=== PATIENT | female | born 1985 | race Caucasian/White ===

== ENCOUNTER 2017-09-25 15:45 | Day surgery (SDC) | payer BC ==
--- NOTE | 2017-09-25 16:40 | PDOC.LDHP ---
Labor and Delivery H&P HPI: L&D Triage: Eval at 1635: Chief complaint: contractions at term HPI: Patient of Dr Alicia here in triage for irregular ctx. No LOF, no VB, no VERDUZCO nor visual changes, No RUQ pain. Good FM. Review of systems: complete ROS performed and negative as per HPI. Past Medical: HX cardiac ablation in past, HX infertility Surgical HX: Rt shoulder surgery OB HX: x 1 Allergies: none Social: negative for ETOH, drugs, tobacco Current gestational age (weeks): 38 Due date: 10/03/17 Dating criteria: last menstrual period Grav: 2 Para: 1 Current complications: none Current medications: pre-destiny vitamins Previous surgical history: other (Cardiac ablation and right shoulder surgery; wisdom teeth; Tonsila and adenoids) Allergies/Adverse Reactions: Allergies Allergy/AdvReac Type Severity Reaction Status Date / Time No Known Allergies Allergy Verified 08/31/14 17:28 Social history: none - Physical Exam Vital signs reviewed and normal: yes (BP 127/76 Pulse 90s) General: NAD Heart: RRR Lungs: CTAB Abdomen: gravid (EFAW 6#) - Vaginal Exam cm dilated: 3 (was 2-3cm at office last check 2 days ago) Effacement: 50% Station: -1 - Assessment Latent labor at term (38 weeks), multip - Plan Plan: observation in L&D (We will have the patient ambulate and recheck in 2 hours. Cat 1 strip at first eval. Pain meds prn. If contractions result in cx change, admit. Check GBS result.)
[2017-09-25] MEDS ORDERED: Promethazine HCl 25 MG/ML VIAL IM/IV PRN (16:43)
[2017-09-25 17:36] VITALS: BMI 28.5
--- NOTE | 2017-09-25 18:39 | PDOC.EVN ---
Event Note - Event Note Event Note: Follow up exam by same provider (FELIX Clark): Cx unchanged at 50/-1/ BP 127/ 70s. I re-evaluated the patient at bedside, ok for discahrge. DX: latent labor. Pain under good control and contractions have decreased.
== END 2017-09-25 18:44 | disposition home or self-care (01) ==
LOC: L&D/OP 15:45
PROVIDERS: ATTEND Obstetrics & Gynecology
DX: O47.1 False labor at or after 37 completed weeks of gestation (principal); Z3A.38 38 weeks gestation of pregnancy; Z79.899 Other long term (current) drug therapy
CPT/HCPCS: 99282

== ENCOUNTER 2017-09-26 01:45 | Inpatient (IN) | payer BC ==
[2017-09-26 02:12] VITALS: BMI 28.5
[2017-09-26] MEDS ORDERED: Lidocaine 1% (PF) 30 ML VIAL SC PRN (02:39)
[2017-09-26] MEDS ORDERED: HYDROcodone/Acetaminophen 5/325 mg Tablet PO PRN ×2 (02:39)
[2017-09-26] MEDS ORDERED: Promethazine HCl 25 MG/ML VIAL IM PRN (02:39)
[2017-09-26] MEDS ORDERED: Ibuprofen 800 MG TAB PO PRN (02:39)
[2017-09-26] MEDS ORDERED: LR / Pitocin 40 units/1000 ml 1,000 ML IV PRN (02:39)
--- NOTE | 2017-09-26 02:43 | PDOC.LDHP ---
Labor and Delivery H&P Chief complaint: contractions, loss of fluid HPI: 32 yo at term with SOOL with loss of fluid at 0045. Some irregular contractions. Good FM. She was 3cm yesterday in L&D when assessed. No Headaches, no visual changes. Review of systems: complete ROS performed and as per HPI Current gestational age (weeks): 39 Grav: 3 Para: 1 OB History Details: x 1 Current complications: none Current medications: pre- vitamins Previous surgical history: other (cardiac ablation, wisdom teeth) Allergies/Adverse Reactions: Allergies Allergy/AdvReac Type Severity Reaction Status Date / Time No Known Allergies Allergy Verified 09/26/17 02:13 Social history: none - Physical Exam Vital signs reviewed and normal: yes General: NAD Heart: RRR Lungs: CTAB Abdomen: gravid (EFW approx 6#) FHT: category 1 [place] contractions every: irregular - Vaginal Exam cm dilated: 3 Effacement: 50% Station: -1 - Assessment L&D Assessment: term rupture in membranes - Plan Plan: admit to L&D, labor augmentation if indicated, GBS antibiotic prophylaxis , informed consent obtained, anesthesia consult for pain management
[2017-09-26] MEDS ORDERED: Penicillin G Potassium 5 MILL.UNITS in Sodium Chloride 0.9% 100 ML IVPB SCH (02:45)
[2017-09-26 02:56] LABS: Hemoglobin 11.9 g/dL (12.0-16.0); Mean Corpuscular HGB CONC 34.8 g/dL (32.0-36.0); Mean Corpuscular Volume 80.7 fl (81.0-99.0); Mean Platelet Volume 7.4 fL (7.4-10.4); Platelet Count 188 thou/uL (130-400); Red Blood Cell (RBC) Count 4.25 mill/uL (4.20-5.40)
[2017-09-26] MEDS ORDERED: Penicillin G Potassium 5 MILL.UNITS VIAL ONE (03:09)
[2017-09-26 03:42] LABS: HBSAg Index 0.19 S/CO (0-0.99); HIV (1/2) Antibody/Antigen Non-Reactive (NonReactive); HIV 1/2 INDEX 0.06 S/CO (<1.00); Hep B Surf Ag Non-Reactive S/CO (NonReactive)
--- NOTE | 2017-09-26 04:36 | PDOC.LDPN ---
Labor & Delivery Progress Note - Objective General: NAD, resting, breathing through contractions Uterine fundus: non tender FHT: category [address] [place] contractions every: few and irregular - Assessment (1) Rupture of membranes Code(s): JVP3974 - Current Visit: Yes Status: Acute (2) 39 weeks gestation of Code(s): Z3A.39 - 39 WEEKS GESTATION OF Current Visit: Yes Status : Acute (3) Premature rupture of membranes Code(s): O42.90 - EVAN ROM, 7TH0 BETW RUPT & ONST LABR, UNSP WEEKS OF GEST Current Visit: Yes Status: Acute Plan: continue plan of care, pitocin for augmentation (We discussed pitocin for latent labor (3cm) PROM. She would like to await to see if conttractions start spontaneously. If no spontaneous labor, we will start pitocin. ), other
[2017-09-26 04:50] LABS: Syphilis Antibody Nonreactive (Nonreactive); Syphilis Antibody Index 0.03 S/CO (<1.00 Non-Reactive)
[2017-09-26] MEDS ORDERED: Penicillin G 2.5 MILL.units 2.5 MILL.UNITS in Premix Bag 1 BAG IVPB SCH (05:00)
[2017-09-26] MEDS: LR / Pitocin 40 units/1000 ml 1,000 ML IV SCH ×2 (06:20→08:27)
[2017-09-26] MEDS ORDERED: Bisacodyl 10 MG SUPP PR PRN (06:24)
[2017-09-26] MEDS ORDERED: Preparation H Ointment 28 GM TUBE PR PRN (06:24)
[2017-09-26] MEDS ORDERED: Milk Of Magnesia 30 ML UDCUP PO PRN (06:24)
[2017-09-26] MEDS ORDERED: Acetaminophen/Codeine 30-300mg Tablet PO PRN ×2 (06:24)
[2017-09-26] MEDS ORDERED: diphenhydrAMINE 25 MG CAP PO PRN (06:24)
[2017-09-26] MEDS ORDERED: Lanolin Ointment 7 GM TUBE TOP PRN (06:24)
[2017-09-26] MEDS ORDERED: Benzocaine/Menthol 20-0.5% 60 ML CAN TOP PRN (06:24)
--- NOTE | 2017-09-26 06:28 | PDOC.OPDEL ---
OB Operative/Delivery Note Delivery Dr/Surgeon: Yannick (For Ravin) Assist: None Pre-Delivery Diagnosis: active labor Procedure/Post Delivery Dx: spontaneous vaginal delivery (Delivery at 0617 ( after complete at 0605)) Weeks gestation: 39 Anesthesia: local - Findings A Sex: male - 1 min: 8 (Off for color) - 5 min: 9 - Additional Findings/Plan Placenta delivered: spontaneous (Placenta delivered 2 minutes after baby-- guidry mechanism) Repaired Obstetrical Laceration: 1st degree (midline, not repaired) Estimated blood loss: 300 Compilations/Other Findings: Hercules male, cephalic. No Nuchal cord No complications with delivery Intact placenta with 3VC All counts were correct First degree not requiring repair. Local poured (10ml) on perineum just prior to delivery (non-injection) for patient relief of burning with . Post delivery plan: routine recovery
[2017-09-26] MEDS: LR 500 ML/Oxytocin 10 units 500 ML IV SCH (06:49)
[2017-09-26] MEDS: Ferrous Sulfate 325 MG TAB PO SCH ×2 (08:29→17:55)
[2017-09-26] MEDS: Docusate Calcium (SURFAK) 240 MG CAP PO SCH ×2 (08:29→21:46)
[2017-09-26] MEDS: Prenatal Vitamin 1 TAB PO SCH (08:29)
[2017-09-26] MEDS ORDERED: Measles/Mumps/Rubella 10 MCG/0.5 ML VIAL SC ONE (09:00)
[2017-09-26] MEDS ORDERED: Varicella virus, LIVE 0.5 ML VIAL SC ONE (09:00)
[2017-09-26] MEDS ORDERED: Adacel (T-DAP) 0.5 ML VIAL IM ONE (09:00)
[2017-09-26] MEDS: Ibuprofen 800 MG TAB PO SCH ×2 (14:25→21:45)
[2017-09-27 05:28] LABS: Hemoglobin 10.3 g/dL (12.0-16.0); Mean Corpuscular HGB CONC 34.6 g/dL (32.0-36.0); Mean Corpuscular Hemoglobin 28.4 pg (27.0-31.0); Mean Platelet Volume 7.7 fL (7.4-10.4); Platelet Count 183 thou/uL (130-400); RBC Distribution Width 13.2 % (11.5-14.5); Red Blood Cell (RBC) Count 3.63 mill/uL (4.20-5.40); White Blood Cell (WBC) Count 10.1 thou/uL (4.8-10.8)
[2017-09-27] MEDS: LR 500 ML/Oxytocin 10 units 500 ML IV SCH (06:17)
[2017-09-27] MEDS: Ibuprofen 800 MG TAB PO SCH ×2 (06:18→14:00)
--- NOTE | 2017-09-27 07:03 | PDOC.PP ---
Post Progress Note Post Day #: 1 PO intake tolerated: yes Flatus: yes Ambulation: yes Vital Signs (12 hours) Temp Pulse Resp BP Pulse Ox 09/27/17 00:53 98.3 F 73 18 104/56 L 09/26/17 20:25 98.2 F 72 18 117/65 99 Weight Weight 188 lb - Physical Examination General: NAD Cardiovascular: no m/r/g, RRR Respiratory: clear to auscultation bilaterally Abdominal: + bowel sounds, lochia Extremities: negative homans (B) Neurological: no gross focal deficits Psychiatric: A&Ox3, normal affect Result Diagrams: 09/27/17 04:26 Additional Labs: Post Labs Hep Bs Antigen Non-Reactive S/CO (NonReactive) 09/26/17 02:40 (1) Vaginal delivery Code(s): O80 - ENCOUNTER FOR FULL-TERM UNCOMPLICATED DELIVERY Status: Acute - Assessment/Plan DChome will e[facility] nursery
[2017-09-27] MEDS: Ferrous Sulfate 325 MG TAB PO SCH (08:34)
[2017-09-27] MEDS: Prenatal Vitamin 1 TAB PO SCH (08:41)
[2017-09-27] MEDS: Docusate Calcium (SURFAK) 240 MG CAP PO SCH (08:42)
[2017-09-27 09:05] VITALS: BP 107/53; TEMP 97.9
== END 2017-09-27 17:55 | disposition home or self-care (01) | DRG 775 ==
LOC: L&D/OP 01:45 → L&D 02:49 → 3SW 11:44
PROVIDERS: ADMIT Obstetrics & Gynecology; ATTEND Obstetrics & Gynecology
PROC: 10E0XZZ Delivery of Products of Conception, External Approach (ICD-10-PCS; principal; 2017-09-26)
DX: O99.824 Streptococcus B carrier state complicating childbirth (principal); Z37.0 Single live birth; O70.0 First degree perineal laceration during delivery; Z3A.39 39 weeks gestation of pregnancy
CPT/HCPCS: 36415; 85027; 86780; 87340; 87389; 99285; J2001; J2540

== ENCOUNTER 2017-11-15 07:05 | Emergency (ER) | payer BC ==
[2017-11-15 07:36] LABS: Bilirubin Small (Negative); Blood, Urine Trace (Negative); Clarity Slightly Cloudy (Clear); Glucose, Urine (Dipstick) Negative (Negative); Leukocyte Trace (Negative); Nitrite Negative (Negative); Protein, Urine (Dipstick) > or equal to 300 mg/dL (Neg-Trace)
[2017-11-15 07:37] LABS: Bacteria/HPF Rare-Few HPF (None Seen); Specific Gravity, Urine Greater than 1.035 (1.002-1.036)
[2017-11-15 07:38] LABS: Crystals/HPF 2+ AMORPH URATES HPF (Negative); Hyaline Casts/LPF NONE SEEN LPF (0-3 Hyaline)
[2017-11-15] MEDS ORDERED: Ondansetron ODT 4 MG TAB ONE (07:47)
[2017-11-15] MEDS ORDERED: Fentanyl 100 MCG/2 ML VIAL ONE (07:47)
[2017-11-15 08:09] LABS: ALT (SGPT) 44 U/L (8-55); AST (SGOT) 41 U/L (5-34); Albumin 4.1 g/dL (3.5-5.0); Alkaline Phosphatase 177 U/L (40-150); Anion Gap 18 mmol/L (10-20); BUN (Urea Nitrogen) 18 mg/dL (7.0-18.7); Band 3 % (5-11); Bilirubin, Total 0.3 mg/dL (0.2-1.2); Calc. Creatinine Clearance 0 mL/min (70-130); Calcium 10.2 mg/dL (7.8-10.44); Carbon Dioxide 19 mmol/L (22-29); Chloride 109 mmol/L (98-107); Eosinophils 2 % (0-10); Estimated GFR-MDRD 90; Globulin 3.1 g/dL (2.4-3.5); Glucose 102 mg/dL (70-105); Hemoglobin 12.9 g/dL (12.0-16.0); Lipase 17 U/L (8-78); Lymphocytes 16 % (21-51); MDiff Complete? YES; Mean Corpuscular HGB CONC 34.4 g/dL (32.0-36.0); Mean Corpuscular Hemoglobin 26.9 pg (27.0-31.0); Mean Platelet Volume 7.3 fL (7.4-10.4); Microcytosis SLIGHT = 6-15 cells (100X) (0-5/hpf); Monocytes 3 % (0-10); Neutrophil 76 % (42-75); Platelet Count 228 thou/uL (130-400); Potassium 4.2 mmol/L (3.5-5.1); Protein, Total 7.2 g/dL (6.0-8.3); RBC Distribution Width 12.6 % (11.5-14.5); Red Blood Cell (RBC) Count 4.79 mill/uL (4.20-5.40); Sodium 142 mmol/L (136-145); White Blood Cell (WBC) Count 7.9 thou/uL (4.8-10.8)
--- NOTE | 2017-11-15 10:16 | ULT ---
RIGHT UPPER QUADRANT ULTRASOUND: HISTORY: Pain. COMPARISON: None. TECHNIQUE: Utilizing a multihertz transducer, sonographic imaging of the right upper quadrant is performed in th e longitudinal and transverse plane. FINDINGS: Hepatic parenchyma has a normal echotexture. No hepatic masses or intrahepatic biliary dilatation. Contour of the hepatic margin is maintained. The right hepatic lobe measures 19.5 cm. The head and proximal pancreatic body have a normal echotexture. The remainder of the pancreas is ob scured. Visualized IVC is unremarkable. No hydronephrosis. The right kidney measures 3.4 x 3.6 x 11.8 cm. Main portal vein is patent. Appropriate directional flow. The common bile duct diameter is 0.3 cm. Sonographic evidence of sludge and stones. No evidence of cholecystitis. Gallbladder wall is not th ickened. No pericholecystic fluid. Negative Thomas's sign. IMPRESSION: Sonographic evidence of sludge and stones. No evidence of cholecystitis. POS: [facility]
== END 2017-11-15 09:44 | disposition home or self-care (01) ==
LOC: SCSER 07:05
DX: K80.20 Calculus of gallbladder without cholecystitis without obstruction (principal); Z79.899 Other long term (current) drug therapy
CPT/HCPCS: 76705; 80053; 81003; 81015; 83690; 85025; 96360; 96361; J3010; Q0162

== ENCOUNTER 2017-11-18 09:48 | Day surgery (SDC) | payer BC ==
--- NOTE | 2017-11-17 15:03 | HP ---
HISTORY OF PRESENT ILLNESS: Ashley Shaila Medeiros. 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 She i s 6 weeks , 2, para 2, has had symptoms of epigastric right upper quadrant pain, ba ck radiation, nausea occurring postprandial. She presented to the emergency room at [facility] on 11/15/2017. Ultrasound revealed gallstones and normal bile duct caliber. Liver function test s were normal. CBC is normal. Plan is for laparoscopic cholecystectomy. She understands risks of i nfection, bleeding, visceral and biliary injury and consents. PAST SURGICAL HISTORY: Right shoulder surgery, history of cardiac ablation for PVCs, laparoscopy by Stephania Garrison, Gynecology/Oncology at [place] noting normal ovary after CA 19-9 and imaging studies suggest left ovarian mass. Ovary was normal during that study and she was released without followup . Followup tumor markers are normal. PAST SURGICAL HISTORY: Tonsillectomy. PAST MEDICAL HISTORY: Noncontributory. REVIEW OF SYSTEMS: Ten point noncontributory. PHYSICAL EXAMINATION: VITAL SIGNS: 127/70, 68, 98.8 degrees. HEAD, EARS, EYES, NOSE, AND THROAT: Unremarkable. LUNGS: Clear to auscultation. CARDIAC: Regular rate and rhythm without murmur or gallop. ABDOMEN: Soft. Mild tenderness in right upper quadrant with mild guarding. EXTREMITIES: Unremarkable. ASSESSMENT AND PLAN: Subacute cholecystitis and cholelithiasis. Recommend laparoscopic video cholec ystectomy. Risk and benefits as outlined above. Questions answered.
[2017-11-17 17:00] VITALS: BMI 25.2
[2017-11-18] MEDS ORDERED: Ketorolac Tromethamine 30 MG/ML VIAL ONE (09:57)
[2017-11-18] MEDS ORDERED: CEFAZOLIN/Water 2 GM/20 ML SYRINGE ONE (09:58)
[2017-11-18] MEDS ORDERED: Fentanyl 100 MCG/2 ML VIAL ONE ×3 (10:03→12:05)
[2017-11-18] MEDS ORDERED: HYDROmorphone 0.5 MG/0.5 ML SYRINGE ONE (10:33)
[2017-11-18] MEDS ORDERED: Levofloxacin 500 mg/D5W 100 ml Premix Bag ONE (10:41)
[2017-11-18] MEDS ORDERED: Bupivacaine HCl 0.5%/Epinephrine 1:200,000/PF 30 ml Vial ONE (10:46)
[2017-11-18] MEDS ORDERED: Promethazine HCl 25 MG/ML VIAL ONE (12:33)
[2017-11-18] MEDS ORDERED: PROPOFOL 200 MG/20 ML VIAL ONE (14:03)
[2017-11-18] MEDS ORDERED: Lidocaine 1% PF 5 ML VIAL ONE (14:03)
[2017-11-18] MEDS ORDERED: Glycopyrrolate 0.2 MG/ML 5 ML SYRINGE ONE (14:03)
[2017-11-18] MEDS ORDERED: Ondansetron HCl/PF 4 MG/2 ML Vial ONE (14:03)
[2017-11-18] MEDS ORDERED: Metoclopramide HCl 10 MG/2 ML VIAL ONE (14:03)
[2017-11-18] MEDS ORDERED: Dexamethasone 20 MG/5 ML VIAL ONE (14:03)
[2017-11-18] MEDS ORDERED: Succinylcholine Chloride 20 MG/ML 10 ml SYRINGE FS ONE (14:03)
--- NOTE | 2017-11-18 17:04 | OP ---
DATE OF PROCEDURE: 11/18/2017 PREOPERATIVE DIAGNOSES: Chronic cholecystitis, cholelithiasis, gallbladder outlet obstruction with h ydrops of the gallbladder. POSTOPERATIVE DIAGNOSES: Chronic cholecystitis, cholelithiasis, gallbladder outlet obstruction with hydrops of the gallbladder. SURGEON: Shaheed Roper M.D. ANESTHESIA: General. Local 0.5% Marcaine with epinephrine, 30 mL, total volume mixture used. FINDINGS: Acute cholecystitis, gallbladder wall thickening, hydrops of the gallbladder, gallstone ob structing the cystic duct outlet. DESCRIPTION OF PROCEDURE: The patient was taken to the operating room where under general anesthesia in supine position, abdomen was prepared with ChloraPrep, draped in routine fashion. Local anesthet ic infiltrated into skin and subcutaneous tissue about each port site. Infraumbilical incision was m armani and pneumoperitoneum to 15 mmHg were obtained with the Veress needle, replacing it with a 5 port and video laparoscope inserted. Right subxiphoid incision was made and 11 port placed. Right subcos roosevelt incision was made mid clavicular axillary lines and 5 ports placed. Liver appeared to be normal. Grossly, viscera appeared to be normal. Gallbladder was distended and wall thickened. Fundus gras ped and reflected cephalad. Infundibulum grasped and reflected laterally. Cystic artery and duct di ssected free. Critical view obtained. Cystic duct opened next to the gallbladder and cystic duct st ones moved out of the cystic duct. The cystic duct stump doubly clipped. Cystic artery double clipp ed. Cystic artery and duct divided. The gallbladder dissected free from liver bed obtaining good he mostasis prior to division of final peritoneal attachments, gallbladder and contents, stones removed and submitted to Pathology. Gallbladder contained clear inspissated mucus and fluid indicative of hy drops. Good hemostasis ensured. Irrigant and pneumoperitoneum evacuated. All instruments removed a nd all skin incisions approximated with interrupted subdermal 4-0 Monocryl and DermaGlue applied.
== END 2017-11-18 15:07 | disposition home or self-care (01) ==
LOC: SDC 09:48
PROVIDERS: ATTEND Specialist
PROC: 0FT44ZZ Resection of Gallbladder, Percutaneous Endoscopic Approach (ICD-10-PCS; principal; 2017-11-18)
DX: K80.13 Calculus of gallbladder with acute and chronic cholecystitis with obstruction (principal); K82.1 Hydrops of gallbladder; Z79.2 Long term (current) use of antibiotics
CPT/HCPCS: 88304; 96374; J0131; J0670; J1100; J1170; J1885; J1956; J2001; J2405; J2550; J2704; J2765; J3010

== ENCOUNTER 2018-04-30 15:45 | Outpatient (CLI) | payer BC ==
--- NOTE | 2018-04-30 16:05 | RAD ---
LUMBAR SPINE TWO VIEWS: 04/30/18 HISTORY: Spondylolisthesis. FINDING/IMPRESSION: There is mild scoliosis of the spine. No fracture, subluxation or bony destructive seen. There is an 8 mm calcific density in the projection of the inferior pole of the right kidney suspicio us for renal calculus. POS: [facility]
== END 2018-04-30 15:46 | disposition home or self-care (01) ==
LOC: BICRAD 15:45
PROVIDERS: ATTEND Internal Medicine Rheumatology
DX: M45.0 Ankylosing spondylitis of multiple sites in spine (principal); M41.9 Scoliosis, unspecified; N28.9 Disorder of kidney and ureter, unspecified
CPT/HCPCS: 72100

== ENCOUNTER 2018-05-19 08:40 | Outpatient (CLI) | payer BC ==
--- NOTE | 2018-05-19 09:38 | RAD ---
SI JOINTS 3 VIEWS: HISTORY: Ankylosing spondylitis. FINDINGS: The SI joints are symmetric in appearance. I do not see any signs of bony ankylosis. No erosive bon y change. IMPRESSION: Unremarkable SI joints. POS: [facility]
== END 2018-05-19 08:41 | disposition home or self-care (01) ==
LOC: BICRAD 08:40
PROVIDERS: ATTEND Internal Medicine Rheumatology
DX: M45.0 Ankylosing spondylitis of multiple sites in spine (principal)
CPT/HCPCS: 72202

== ENCOUNTER 2019-02-16 10:05 | Day surgery (SDC) | payer BC ==
[2019-02-15 13:00] VITALS: BMI 25.8
--- NOTE | 2019-02-16 10:04 | HP ---
REASON FOR ADMISSION: Missed . SCHEDULED PROCEDURE: Suction and sharp D and C. HISTORY OF PRESENT ILLNESS: Ms. Medeiros is a 4, para 2, AB 1, now 2, who is being seen in my office. Serial ultrasounds reveal a very small crown-rump length but no cardiac activity. She desires suction D and C. 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 No history of dysplasia. Blood type O positive, antibody negative. SURGICAL HISTORY: ovarian mass, cardiac ablation, joint shoulder surgery, and tonsillectomy. PAST MEDICAL HISTORY: History of SVT, resolved. MEDICATIONS: vitamins. ALLERGIES: NONE. SOCIAL HISTORY: Denies tobacco, alcohol, or IV drug use. FAMILY HISTORY: Noncontributory. REVIEW OF SYSTEMS: Noncontributory. PHYSICAL EXAMINATION: GENERAL: White female, in no acute distress. HEENT: Within normal limits. LUNGS: Clear to auscultation bilaterally. HEART: Regular rhythm. BREASTS: No masses bilaterally. ABDOMEN: Soft, nontender. No rebound or guarding. VULVA: Without lesions. VAGINA: Without discharge. CERVIX: Parous. UTERUS: Anteverted eight week size. ADNEXA: No masses bilaterally. EXTREMITIES: No clubbing, cyanosis, or edema. Ultrasound reveals 2 x 2 cm subchorionic hemorrhage with approximately 3 cm gestational sac. 3 mm crown-rump length with persistent absent FHTs for 2 weeks straight. IMPRESSION: Blighted ovum, missed , first-trimester. PLAN: Suction and sharp D and C per patient request. We will administer appropriate antibiotic and DVT prophylaxis. Job ID: [id number]
[2019-02-16] MEDS ORDERED: Sodium Chloride 0.9% 100 ML ONE (11:07)
[2019-02-16] MEDS ORDERED: CEFAZOLIN 1 GM VIAL ONE (11:07)
[2019-02-16 11:08] LABS: #Lymphocytes 1.7 thou/uL (1.20-3.40); #Monocytes 0.5 thou/uL (0.11-0.59); #Neutrophils 3.9 thou/uL (1.40-6.50); %Basophils 0.8 % (0.0-1.0); %Eosinophils 0.6 % (0.0-10.0); %Lymphocytes 27.3 % (21.0-51.0); %Monocytes 8.7 % (0.0-10.0); %Neutrophils 62.7 % (42.0-75.0); Hemoglobin 13.8 g/dL (12.0-16.0); Mean Corpuscular HGB CONC 34.7 g/dL (32.0-36.0); Mean Corpuscular Hemoglobin 28.3 pg (27.0-31.0); Mean Corpuscular Volume 81.7 fL (78.0-98.0); Mean Platelet Volume 6.3 fL (7.4-10.4); Platelet Count 275 thou/uL (130-400); RBC Distribution Width 11.9 % (11.5-14.5); Red Blood Cell (RBC) Count 4.89 mill/uL (4.20-5.40); White Blood Cell (WBC) Count 6.2 thou/uL (4.8-10.8)
[2019-02-16] MEDS ORDERED: Fentanyl 100 MCG/2 ML VIAL ONE (11:40)
[2019-02-16] MEDS ORDERED: Midazolam HCl 2 mg/2 ml Vial ONE (11:40)
[2019-02-16] MEDS ORDERED: Ondansetron PF 4 MG/2 ML Vial ONE (16:19)
[2019-02-16] MEDS ORDERED: Ketorolac Tromethamine 30 MG/ML VIAL ONE (16:19)
[2019-02-16] MEDS ORDERED: Lidocaine 1% PF 5 ML VIAL ONE (16:19)
[2019-02-16] MEDS ORDERED: PROPOFOL 200 MG/20 ML VIAL ONE (16:19)
[2019-02-16] MEDS ORDERED: Dexamethasone 20 MG/5 ML VIAL ONE (16:19)
--- NOTE | 2019-02-16 18:42 | OP ---
DATE OF PROCEDURE: 02/16/2019 TIME OF SURGERY: 1200 hours. PREOPERATIVE DIAGNOSIS: Missed . POSTOPERATIVE DIAGNOSIS: Missed . PROCEDURE PERFORMED: Suction and sharp dilation and curettage, first trimester. ANESTHESIOLOGIST: Yossi Ramos CRNA ANESTHESIA: LMA GA. MEDICATIONS: 1 g Ancef preincision, DVT prophylaxis with SCDs. DRAINS: I and O catheter with prep. OPERATIVE FINDINGS: 1. Pre and post sound 10 to 11 cm. 2. Products of conception. 3. No evidence of perforation. ESTIMATED BLOOD LOSS: Less than 25 mL. DISPOSITION: Recovery room, Day Stay, and home. PATHOLOGY: Products of conception. DESCRIPTION OF PROCEDURE: After I obtained proper informed consent, the patient was taken to the operating room, where LMA GA was achieved without difficulty. She was prepped and draped in dorsal lithotomy. A weighted speculum was placed in the vagina. Cervix was identified and grasped with single-tooth tenaculum at 12 o'clock. Uterus sounded to 10 to 11 cm, was mid to slightly retroverted, severely dilated up to an appropriate level. An 8 mm curved curette with a maximum vacuum of approximately 50 mmHg was introduced into the uterine cavity and evacuation of the uterine cavity was noted. Definite products of conception were noted in the vacuum tube. Once there was cessation of flowage of material from the uterus with suction D and C, it was removed and a sharp curette was carried out circumferentially, which revealed a gritty texture consistent with complete removal of products of conception. Post-sound was 10 to 11 cm. The tenaculum was removed. No bleeding was noted. The patient was awakened, extubated, and taken to recovery room in good condition. Job ID: [id number]
== END 2019-02-16 14:30 | disposition home or self-care (01) ==
LOC: SDC 10:05
PROVIDERS: ATTEND Obstetrics & Gynecology
PROC: 10D17ZZ Extraction of Products of Conception, Retained, Via Natural or Artificial Opening (ICD-10-PCS; principal; 2019-02-16)
DX: O02.0 Blighted ovum and nonhydatidiform mole (principal)
CPT/HCPCS: 85025; 86850; 86900; 86901; 88305; J0690; J1100; J1885; J2001; J2250; J2405; J2704; J3010; J3490

== ENCOUNTER 2021-03-22 10:54 | Outpatient (CLI) | payer BC | END 2021-03-22 10:55 | disposition home or self-care (01) | LOC: BICRAD 10:54 | PROVIDERS: ATTEND Internal Medicine Rheumatology | DX: M41.26 Other idiopathic scoliosis, lumbar region (principal) | CPT/HCPCS: 72100 ==

== ENCOUNTER 2021-04-12 09:57 | Outpatient (CLI) | payer BC | END 2021-04-12 09:58 | disposition home or self-care (01) | LOC: BICRAD 09:57 | PROVIDERS: ATTEND Specialist | DX: M47.812 Spondylosis without myelopathy or radiculopathy, cervical region (principal) | CPT/HCPCS: 72050 ==